=== PATIENT | female | born 1940 | race Caucasian/White ===

== ENCOUNTER 2025-06-12 09:52 | Inpatient (IN) | payer MEDICARE, OTHER ==
[2025-06-12 11:04] LABS: White Blood Cell (WBC) Count 6.04 10x3/uL (3.5-10.5)
[2025-06-12 11:05] LABS: Hematocrit 21.1 % (34.9-44.5); Hemoglobin 6.1 g/dL (12.0-15.5); Mean Corpuscular Hemoglobin 23.9 pg (27.0-33.0); Mean Corpuscular Volume 82.7 fL (81.6-98.3); Platelet Count 211 10x3/uL (150-450); Red Blood Cell (RBC) Count 2.55 10x6/uL (3.90-5.03)
[2025-06-12 11:25] LABS: Anion Gap 15 mmol/L (10-20); Calcium 8.2 mg/dL (7.8-10.44); Carbon Dioxide 20 mmol/L (23-31); Chloride 105 mmol/L (98-107); Glucose 193 mg/dL (83-110); Potassium 4.2 mmol/L (3.5-5.1); Sodium 136 mmol/L (136-145)
[2025-06-12 11:32] LABS: Troponin I Less than 0.010 ng/mL (< 0.028)
[2025-06-12 11:42] LABS: Glucose, Urine (Dipstick) Normal (Negative); Leukocyte 500 (Negative); Protein, Urine (Dipstick) 100 mg/dl (Neg-Trace); Specific Gravity, Urine 1.020 (1.005-1.030)
[2025-06-12 11:45] LABS: Bacteria/HPF 3+ HPF (None Seen); CAUTI Indications for Culture Dysuria,urgency,freq; WBC/HPF Greater than 50 HPF (0-3)
[2025-06-12 11:46] LABS: Urine Culture Reflex Yes Yes
[2025-06-12 11:49] LABS: #Basophils Less than 0.03 10x3/uL (0.0-0.2); #Eosinophils Less than 0.03 10x3/uL (0.0-0.5); #Monocytes 0.45 10x3/uL (0.0-1.1); #Neutrophils 5.19 10x3/uL (1.5-8.4); %Basophils 0.2 % (0.0-2.0); %Eosinophils 0.3 % (0.0-6.0); %Lymphocytes 5.8 % (18.0-47.0); %Monocytes 7.5 % (0.0-10.0); %Neutrophils 85.9 % (40.0-75.0)
[2025-06-12] MEDS ORDERED: cefTRIAXone (ROCEPHIN) 1 GM VIAL ONE (11:52)
[2025-06-12] MEDS ORDERED: Melatonin 3 MG TAB PO PRN (11:56)
[2025-06-12] MEDS ORDERED: Senokot S 8.6-50 MG TAB PO PRN (11:56)
[2025-06-12] MEDS ORDERED: Ondansetron PF 4 MG/2 ML Vial IVP PRN (11:56)
[2025-06-12] MEDS ORDERED: Guaifenesin DM 100-10/5 ML UDCUP PO PRN (11:56)
[2025-06-12] MEDS ORDERED: Electrolyte Replacement Protocol 1 EACH FS SCH (12:00)
[2025-06-12] MEDS ORDERED: Nitroglycerin 0.4 MG TAB (25 Tab Bottle) SL PRN (12:01)
[2025-06-12 12:02] LABS: ALT (SGPT) 289 U/L (Less than 34); AST (SGOT) 173 U/L (11-34); Albumin 2.7 g/dL (3.1-4.5); Alkaline Phosphatase 148 U/L (40-110); BUN (Urea Nitrogen) 21 mg/dL (9.8-20.1); Bilirubin, Total 0.6 mg/dL (0.3-1.2); Calc. Creatinine Clearance 0 mL/min (70-130)
[2025-06-12 12:07] LABS: Anisocytosis SLIGHT = 6-15 cells (100X) (0-5/hpf); MDiff Complete? YES; Platelet Adequacy Comment Appears Adequate; Polychromasia SLIGHT = 2-3 cells (100X) (0-2/hpf)
[2025-06-12 12:46] LABS: INR-International Normal Ratio 1.2; PTT 32.8 sec (22.0-33.0); Prothrombin Time 13.0 sec (9.5-12.1)
[2025-06-12] MEDS: Pantoprazole 40 MG VIAL IVP SCH ×2 (14:38→20:24)
[2025-06-12 15:03] VITALS: BMI 23.6
[2025-06-12 17:02] LABS: Hemoglobin 8.4 g/dL (12.0-15.5)
[2025-06-12 22:09] LABS: Hemoglobin 7.8 g/dL (12.0-15.5)
[2025-06-13 03:54] LABS: #Basophils Less than 0.03 10x3/uL (0.0-0.2); #Eosinophils 0.07 10x3/uL (0.0-0.5); #Monocytes 0.55 10x3/uL (0.0-1.1); #Neutrophils 3.00 10x3/uL (1.5-8.4); %Basophils 0.2 % (0.0-2.0); %Eosinophils 1.6 % (0.0-6.0); %Lymphocytes 15.1 % (18.0-47.0); %Monocytes 12.8 % (0.0-10.0); %Neutrophils 69.8 % (40.0-75.0); Hematocrit 24.1 % (34.9-44.5); Hemoglobin 7.5 g/dL (12.0-15.5); Mean Corpuscular Hemoglobin 25.6 pg (27.0-33.0); Mean Corpuscular Volume 82.3 fL (81.6-98.3); Platelet Count 203 10x3/uL (150-450); Red Blood Cell (RBC) Count 2.93 10x6/uL (3.90-5.03); White Blood Cell (WBC) Count 4.30 10x3/uL (3.5-10.5)
[2025-06-13 04:18] LABS: ALT (SGPT) 212 U/L (Less than 34); AST (SGOT) 92 U/L (11-34); Albumin 2.6 g/dL (3.1-4.5); Alkaline Phosphatase 133 U/L (40-110); Anion Gap 11 mmol/L (10-20); BUN (Urea Nitrogen) 16 mg/dL (9.8-20.1); Bilirubin, Total 0.7 mg/dL (0.3-1.2); Calc. Creatinine Clearance 45 mL/min (70-130); Calcium 8.5 mg/dL (7.8-10.44); Carbon Dioxide 23 mmol/L (23-31); Chloride 107 mmol/L (98-107); Globulin 3.1 g/dL (2.4-3.5); Glucose 95 mg/dL (83-110); Potassium 3.9 mmol/L (3.5-5.1); Sodium 137 mmol/L (136-145)
[2025-06-13 11:12] LABS: Hematocrit 25.1 % (34.9-44.5); Hemoglobin 7.7 g/dL (12.0-15.5)
[2025-06-13] MEDS ORDERED: cefTRIAXone\\ROCEPHIN 1 GM in Sodium Chloride 0.9% 100 ML IVPB SCH (12:00)
[2025-06-13] MEDS: cefTRIAXone\\ROCEPHIN 1 GM in Sodium Chloride 0.9% 100 ML IVPB SCH (12:39)
[2025-06-13] MEDS: GoLYTELY 4,000 ml Bottle PO SCH (18:12)
[2025-06-14] MEDS: Acetaminophen 325 MG TAB PO PRN (00:37)
[2025-06-14 04:16] LABS: #Basophils 0.03 10x3/uL (0.0-0.2); #Eosinophils 0.15 10x3/uL (0.0-0.5); #Monocytes 0.67 10x3/uL (0.0-1.1); #Neutrophils 2.14 10x3/uL (1.5-8.4); %Basophils 0.7 % (0.0-2.0); %Eosinophils 3.6 % (0.0-6.0); %Lymphocytes 27.2 % (18.0-47.0); %Monocytes 16.1 % (0.0-10.0); %Neutrophils 51.7 % (40.0-75.0); Hematocrit 24.4 % (34.9-44.5); Hemoglobin 7.5 g/dL (12.0-15.5); Mean Corpuscular Hemoglobin 25.1 pg (27.0-33.0); Mean Corpuscular Volume 81.6 fL (81.6-98.3); Platelet Count 218 10x3/uL (150-450); Red Blood Cell (RBC) Count 2.99 10x6/uL (3.90-5.03); White Blood Cell (WBC) Count 4.15 10x3/uL (3.5-10.5)
[2025-06-14 04:32] LABS: ALT (SGPT) 158 U/L (Less than 34); AST (SGOT) 52 U/L (11-34); Albumin 2.5 g/dL (3.1-4.5); Alkaline Phosphatase 132 U/L (40-110); Anion Gap 12 mmol/L (10-20); BUN (Urea Nitrogen) 12 mg/dL (9.8-20.1); Bilirubin, Total 0.4 mg/dL (0.3-1.2); Calc. Creatinine Clearance 53 mL/min (70-130); Calcium 8.0 mg/dL (7.8-10.44); Carbon Dioxide 25 mmol/L (23-31); Chloride 105 mmol/L (98-107); Globulin 3.1 g/dL (2.4-3.5); Glucose 109 mg/dL (83-110); Potassium 3.0 mmol/L (3.5-5.1); Sodium 139 mmol/L (136-145)
[2025-06-14] MEDS ORDERED: PROPOFOL 40 ML ONE (11:47)
[2025-06-15 04:36] LABS: #Basophils Less than 0.03 10x3/uL (0.0-0.2); #Eosinophils 0.19 10x3/uL (0.0-0.5); #Monocytes 0.66 10x3/uL (0.0-1.1); #Neutrophils 2.09 10x3/uL (1.5-8.4); %Basophils 0.5 % (0.0-2.0); %Eosinophils 4.4 % (0.0-6.0); %Lymphocytes 29.9 % (18.0-47.0); %Monocytes 15.4 % (0.0-10.0); %Neutrophils 48.9 % (40.0-75.0); Hematocrit 25.2 % (34.9-44.5); Hemoglobin 7.4 g/dL (12.0-15.5); Mean Corpuscular Hemoglobin 24.3 pg (27.0-33.0); Mean Corpuscular Volume 82.9 fL (81.6-98.3); Platelet Count 193 10x3/uL (150-450); Red Blood Cell (RBC) Count 3.04 10x6/uL (3.90-5.03); White Blood Cell (WBC) Count 4.28 10x3/uL (3.5-10.5)
[2025-06-15 04:53] LABS: ALT (SGPT) 124 U/L (Less than 34); AST (SGOT) 44 U/L (11-34); Albumin 2.5 g/dL (3.1-4.5); Alkaline Phosphatase 133 U/L (40-110); Anion Gap 9 mmol/L (10-20); BUN (Urea Nitrogen) 10 mg/dL (9.8-20.1); Bilirubin, Total 0.3 mg/dL (0.3-1.2); Calc. Creatinine Clearance 42 mL/min (70-130); Calcium 8.1 mg/dL (7.8-10.44); Carbon Dioxide 26 mmol/L (23-31); Chloride 105 mmol/L (98-107); Globulin 2.9 g/dL (2.4-3.5); Glucose 106 mg/dL (83-110); Potassium 3.7 mmol/L (3.5-5.1); Sodium 136 mmol/L (136-145)
[2025-06-15] MEDS: Amiodarone 200 MG TAB PO SCH (15:56)
[2025-06-15] MEDS: Mirabegron ER 25 MG ER.TAB PO SCH (15:57)
[2025-06-16 04:31] LABS: #Basophils 0.03 10x3/uL (0.0-0.2); #Eosinophils 0.24 10x3/uL (0.0-0.5); #Monocytes 0.82 10x3/uL (0.0-1.1); #Neutrophils 3.66 10x3/uL (1.5-8.4); %Basophils 0.5 % (0.0-2.0); %Eosinophils 3.9 % (0.0-6.0); %Lymphocytes 21.9 % (18.0-47.0); %Monocytes 13.3 % (0.0-10.0); %Neutrophils 59.4 % (40.0-75.0); Hematocrit 24.4 % (34.9-44.5); Hemoglobin 7.3 g/dL (12.0-15.5); Mean Corpuscular Hemoglobin 25.1 pg (27.0-33.0); Mean Corpuscular Volume 83.8 fL (81.6-98.3); Platelet Count 208 10x3/uL (150-450); Red Blood Cell (RBC) Count 2.91 10x6/uL (3.90-5.03); White Blood Cell (WBC) Count 6.16 10x3/uL (3.5-10.5)
[2025-06-16 04:45] LABS: ALT (SGPT) 96 U/L (Less than 34); AST (SGOT) 31 U/L (11-34); Albumin 2.5 g/dL (3.1-4.5); Alkaline Phosphatase 133 U/L (40-110); Anion Gap 10 mmol/L (10-20); BUN (Urea Nitrogen) 12 mg/dL (9.8-20.1); Bilirubin, Total 0.3 mg/dL (0.3-1.2); Calc. Creatinine Clearance 40 mL/min (70-130); Calcium 8.3 mg/dL (7.8-10.44); Carbon Dioxide 26 mmol/L (23-31); Chloride 107 mmol/L (98-107); Globulin 2.9 g/dL (2.4-3.5); Glucose 100 mg/dL (83-110); Potassium 4.0 mmol/L (3.5-5.1); Sodium 139 mmol/L (136-145)
[2025-06-16] MEDS: Mirabegron ER 25 MG ER.TAB PO SCH (09:29)
[2025-06-16] MEDS: Amiodarone 200 MG TAB PO SCH (09:30)
[2025-06-16] MEDS: Fosfomycin 3 GM/Packet PO SCH (14:33)
[2025-06-16 16:00] VITALS: BP 133/60; TEMP 97.8
== END 2025-06-16 16:00 | disposition home health service (06) | DRG 812 ==
LOC: SUATTDRO 09:52 → CSHERS 09:52 → CSHTELE 11:54
PROVIDERS: ADMIT Internal Medicine; ATTEND Internal Medicine
PROC: 30233N1 Transfusion of Nonautologous Red Blood Cells into Peripheral Vein, Percutaneous Approach (ICD-10-PCS; 2025-06-12)
PROC: XW0DXF5 Introduction of Other New Technology Therapeutic Substance into Mouth and Pharynx, External Approach, New Technology Group 5 (ICD-10-PCS; 2025-06-12)
PROC: 0DJ08ZZ Inspection of Upper Intestinal Tract, Via Natural or Artificial Opening Endoscopic (ICD-10-PCS; principal; 2025-06-14)
PROC: 0DBP8ZZ Excision of Rectum, Via Natural or Artificial Opening Endoscopic (ICD-10-PCS; 2025-06-14)
PROC: 0DBL8ZZ Excision of Transverse Colon, Via Natural or Artificial Opening Endoscopic (ICD-10-PCS; 2025-06-14)
DX: D50.9 Iron deficiency anemia, unspecified (principal); N39.0 Urinary tract infection, site not specified; Z16.12 Extended spectrum beta lactamase (ESBL) resistance; I48.91 Unspecified atrial fibrillation; I11.0 Hypertensive heart disease with heart failure; I50.9 Heart failure, unspecified; G47.33 Obstructive sleep apnea (adult) (pediatric); E78.5 Hyperlipidemia, unspecified; E11.9 Type 2 diabetes mellitus without complications; Z95.810 Presence of automatic (implantable) cardiac defibrillator; B96.20 Unspecified Escherichia coli [E. coli] as the cause of diseases classified elsewhere; J44.9 Chronic obstructive pulmonary disease, unspecified; Z79.01 Long term (current) use of anticoagulants; Z79.899 Other long term (current) drug therapy; R74.01 Elevation of levels of liver transaminase levels; K64.4 Residual hemorrhoidal skin tags; K63.5 Polyp of colon; K57.30 Diverticulosis of large intestine without perforation or abscess without bleeding; K62.1 Rectal polyp; K59.00 Constipation, unspecified; K80.20 Calculus of gallbladder without cholecystitis without obstruction; K22.89 Other specified disease of esophagus
CPT/HCPCS: 36415; 36416; 36430; 71045; 74176; 80053; 81001; 83880; 84484; 85025; 85610; 85730; 86850; 86900; 86901; 87040; 87077; 87086; 87186; 88305; 93005; 94760; 96374; J0696; J2185; J2470; J2704; J3010; P9016

== ENCOUNTER 2025-09-26 13:00 | Emergency (ER) | payer MEDICARE, OTHER ==
[2025-09-26 13:36] LABS: #Basophils Less than 0.03 10x3/uL (0.0-0.2); #Eosinophils 0.05 10x3/uL (0.0-0.5); #Monocytes 0.86 10x3/uL (0.0-1.1); #Neutrophils 5.88 10x3/uL (1.5-8.4); %Basophils 0.3 % (0.0-2.0); %Eosinophils 0.6 % (0.0-6.0); %Lymphocytes 13.0 % (18.0-47.0); %Monocytes 10.9 % (0.0-10.0); %Neutrophils 74.8 % (40.0-75.0); Hematocrit 38.2 % (34.9-44.5); Hemoglobin 13.1 g/dL (12.0-15.5); Mean Corpuscular Hemoglobin 30.6 pg (27.0-33.0); Mean Corpuscular Volume 89.3 fL (81.6-98.3); Platelet Count 165 10x3/uL (150-450); Red Blood Cell (RBC) Count 4.28 10x6/uL (3.90-5.03); White Blood Cell (WBC) Count 7.86 10x3/uL (3.5-10.5)
[2025-09-26 13:54] LABS: ALT (SGPT) 17 U/L (Less than 34); AST (SGOT) 25 U/L (11-34); Albumin 3.6 g/dL (3.1-4.5); Alkaline Phosphatase 80 U/L (40-110); Anion Gap 12 mmol/L (10-20); BUN (Urea Nitrogen) 23 mg/dL (9.8-20.1); Bilirubin, Total 0.5 mg/dL (0.3-1.2); Calc. Creatinine Clearance 0 mL/min (70-130); Calcium 9.9 mg/dL (7.8-10.44); Carbon Dioxide 26 mmol/L (23-31); Chloride 101 mmol/L (98-107); Globulin 3.0 g/dL (2.4-3.5); Glucose 114 mg/dL (83-110); Potassium 4.5 mmol/L (3.5-5.1); Sodium 134 mmol/L (136-145)
[2025-09-26 14:00] LABS: Troponin I Less than 0.010 ng/mL (< 0.028)
[2025-09-26] MEDS ORDERED: Iopamidol 370 76% 100 ML VIAL ONE (14:15)
[2025-09-26] MEDS ORDERED: Ketorolac Tromethamine 30 MG (1 mL) VIAL ONE (15:44)
[2025-09-26 16:06] LABS: Troponin I Less than 0.010 ng/mL (< 0.028)
== END 2025-09-26 17:15 | disposition home or self-care (01) ==
LOC: CSHERS 13:00
DX: R07.89 Other chest pain (principal); J44.9 Chronic obstructive pulmonary disease, unspecified; E11.9 Type 2 diabetes mellitus without complications; Z79.899 Other long term (current) drug therapy
CPT/HCPCS: 71045; 71275; 74174; 80053; 84484 ×2; 85025; 93005; 96374; 99285; J1885; 36415; Q9967